=== PATIENT | male | born 1970 | race Caucasian/White ===

== ENCOUNTER 2022-09-19 08:38 | Outpatient (CLI) | payer BC, SELFPAY ==
--- NOTE | 2022-09-19 08:45 | CRLHL7_ITS ---
For Patients: As a result of the Cures Act, medical imaging exams and procedure reports are released immediately into your electronic medical record. You may view this report before your referring provider. If you have questions, please contact your health care provider. LEFT DIAGNOSTIC DIGITAL MAMMOGRAM WITH COMPUTER-AIDED DETECTION AND TOMOSYNTHESIS CLINICAL HISTORY: LEFT breast lump. COMPARISON: 04/13/2021, 12/31/2020. TECHNIQUE: Digital LEFT mammogram in two projections with computer-aided detection and tomosynthesis. BREAST COMPOSITION: There are scattered areas of fibroglandular density. FINDINGS: 3D CC and 3D MLO LEFT breast mammogram images submitted. Postbiopsy changes x2 are present within the retroareolar tissues. Focal subareolar gynecomastia again noted which is slightly more prominent. There is no underlying mass. No architectural distortion. No suspicious calcifications. IMPRESSION: Mildly increased LEFT subareolar focal gynecomastia, biopsy x2. No evidence of malignancy. RECOMMENDATIONS: Clinical follow-up. Consider surgical consultation if surgical excision is desired. No repeat biopsy indicated at this time. Results and recommendations discussed with the patient. BI-RADS Category 2. Benign A lay language report of this examination will be provided to the patient. Dictated by Jim Fuentes MD @ 09/19/2022 9:49:32 AM [email or web address] RD/Dictated by: Jim Fuentes MD @ 09/19/2022 9:49:00 AM (Electronically Signed)
== END 2022-09-19 08:39 | disposition home or self-care (01) ==
PROVIDERS: PCP Family Medicine; Visit Provider Family Medicine
DX: N63.20 Unspecified lump in the left breast, unspecified quadrant (principal)
CPT/HCPCS: 77065; G0279

== ENCOUNTER 2022-11-25 09:20 | Outpatient (CLI) | payer BC, SELFPAY ==
[2022-11-25 10:35] LABS: Albumin* 4.4 g/dL (3.3-5.0); Chloride* 103 mmol/L (96-114)
[2022-11-25 10:36] LABS: Potassium* 3.9 mmol/L (3.6-5.1); Sodium* 140 mmol/L (135-149)
[2022-11-25 10:38] LABS: Alkaline Phosphatase* 83 U/L (40-150); Aspartate Amino Transferase* 38 U/L (12-35); Bilirubin Total* 0.9 mg/dL (0.1-1.5); Blood Urea Nitrogen* 18 mg/dL (7-30); Carbon Dioxide* 31 mmol/L (20-32); Cholesterol* 251 mg/dL (90-199); Creatinine* 0.8 mg/dL (0.5-1.5); Estimated Glomerular Filt Rate 107 ml/min; Glucose* 87 mg/dL (60-115); Total Protein* 7.4 g/dL (6.0-8.3)
[2022-11-25 10:39] LABS: Alanine Aminotransferase* 32 U/L (4-50); Calcium* 9.6 mg/dL (8.4-10.6); HDL Cholesterol* 49 mg/dL (>=40)
[2022-11-25 10:50] LABS: LDL Cholesterol Calculated 71 mg/dL (<100); Triglycerides* 653 mg/dL (40-149)
== END 2022-11-25 09:21 | disposition home or self-care (01) ==
PROVIDERS: Family Medicine; PCP Family Medicine; Visit Provider Family Medicine
DX: Z00.00 Encounter for general adult medical examination without abnormal findings (principal); R50.9 Fever, unspecified; I10 Essential (primary) hypertension; E78.5 Hyperlipidemia, unspecified; N41.9 Inflammatory disease of prostate, unspecified
CPT/HCPCS: 80053; 80061

== ENCOUNTER 2023-12-14 08:51 | Outpatient (CLI) | payer BC, SELFPAY | END 2023-12-14 08:52 | disposition home or self-care (01) | LOC: NFLDREF 12-22 12:11 | PROVIDERS: PCP Family Medicine; Referring Provider Family Medicine; Visit Provider Family Medicine | DX: I10 Essential (primary) hypertension (principal); K62.89 Other specified diseases of anus and rectum; K62.5 Hemorrhage of anus and rectum; N41.9 Inflammatory disease of prostate, unspecified; B36.0 Pityriasis versicolor; E78.5 Hyperlipidemia, unspecified; Z12.5 Encounter for screening for malignant neoplasm of prostate; Z00.00 Encounter for general adult medical examination without abnormal findings | CPT/HCPCS: 80053; 80061; G0103 ==

== ENCOUNTER 2024-12-11 08:41 | Outpatient (CLI) | payer BC, SELFPAY | END 2024-12-11 08:42 | disposition home or self-care (01) | LOC: NFLDREF 12-16 08:48 | PROVIDERS: PCP Family Medicine; Referring Provider Family Medicine; Visit Provider Family Medicine | DX: I10 Essential (primary) hypertension (principal); E78.5 Hyperlipidemia, unspecified; Z12.5 Encounter for screening for malignant neoplasm of prostate | CPT/HCPCS: 80053; 80061; G0103 ==

== ENCOUNTER 2025-01-09 15:23 | Outpatient (CLI) | payer BC, SELFPAY ==
--- NOTE | 2025-01-09 15:30 | MR_ITS ---
EXAM: MR PELVIS WITHOUT AND WITH CONTRAST CLINICAL INFORMATION: Elevated PSA. COMPARISON: None. TECHNICAL INFORMATION: Examination was performed on a 1.5T magnet. High- resolution T1 axial, T2 axial, T2 FSE sagittal and T2 FSE coronal images were obtained through the prostate gland and seminal vesicles. Diffusion images were obtained in the axial plane. 15 mL of Dotarem were injected with dynamic enhanced images of the prostate gland in the axial plane. T1 fat saturation sagittal and coronal images were obtained postinjection. Images were analyzed with 3-D postprocessing online under concurrent physician supervision using a separate [employer] workstation. INTERPRETATION: The prostate gland measures 4.8 x 4.2 x 5.4 cm (TV x AP x SI) for an estimated volume of 56 cc. Transitional and central zones: There is moderate glandular and stromal hyperplasia with well encapsulated BPH nodules (PI-RADS 2). No focal CZ/TZ lesions concerning for clinically significant adenocarcinoma. Peripheral zones: No focal PZ lesions concerning for clinically significant adenocarcinoma (PI-RADS 1). Pelvis: No va transcapsular disease. Neurovascular bundles and seminal vesicles appear intact. No pelvic lymphadenopathy or evident bone marrow disease. CONCLUSION: Moderate prostatomegaly with stigmata of BPH. No suspicious (PI-RADS 3, 4, or 5) lesions identified. No va transcapsular, martha, or skeletal disease in the pelvis. PI-RADS Assessment Categories: Score 1 = very low; clinically significant disease highly unlikely Score 2 = low; clinically significant disease is unlikely Score 3 = intermediate; clinically significant disease is equivocal Score 4 = high; clinically significant disease is likely Score 5 = very high; clinically significant disease is highly likely Electronically signed on 01/14/2025 11:41:00 AM by Adam Erickson M.D.
== END 2025-01-09 15:24 | disposition home or self-care (01) ==
LOC: MRI 15:24
PROVIDERS: PCP Family Medicine; Visit Provider Urology
DX: R97.20 Elevated prostate specific antigen [PSA] (principal)
CPT/HCPCS: 72197; A9575

== ENCOUNTER 2025-05-09 14:26 | Outpatient (CLI) | payer BC, SELFPAY | END 2025-05-09 14:27 | disposition home or self-care (01) | LOC: NFLDREF 05-11 06:19 | PROVIDERS: PCP Family Medicine; Referring Provider Family Medicine; Visit Provider Nurse Practitioner Family | DX: R39.9 Unspecified symptoms and signs involving the genitourinary system (principal); N39.0 Urinary tract infection, site not specified | CPT/HCPCS: 87086; 87186 ==

== ENCOUNTER 2025-07-29 10:10 | Outpatient (CLI) | payer BC, SELFPAY ==
--- NOTE | 2025-07-29 10:15 | CRLHL7_ITS ---
For Patients: As a result of the Century Cures Act, medical imaging exams and procedure reports are released immediately into your electronic medical record. You may view this report before your referring provider. If you have questions, please contact your health care provider. Indication: Left Axilla Lymph Node Re-evaluation Technique: Grayscale and color Doppler ultrasound of the left axillary soft tissues performed. Comparison: 10/07/2021 Findings: Normal left axillary lymph node is present. No cortical thickening. Normal vascularity and normal central fatty hilum. Impression: No suspicious findings. Dictated by Jim Fuentes MD @ 07/29/2025 10:59:42 AM (Electronically Signed)
== END 2025-07-29 10:11 | disposition home or self-care (01) ==
PROVIDERS: PCP Family Medicine; Visit Provider Surgery
DX: R59.1 Generalized enlarged lymph nodes (principal)
CPT/HCPCS: 76882

== ENCOUNTER 2025-09-01 10:04 | Outpatient (CLI) | payer BC, SELFPAY ==
--- NOTE | 2025-09-01 11:56 | P.ANES_ITS ---
Anesthesia Charges Start Date/Time Anesthesia Start Date: 09/01/25 Anesthesia Start Time: 11:34 Stop Date/Time Anesthesia Stop Date: 09/01/25 Anesthesia Stop Time: 12:09 Coding CPT Codes CPT Codes: ANES LWR INTST NDSC NOS - [id number] ([id number]) P3 - PATIENT W/SEVERE SYS DISEASE, QK - ELECTRONIC WARFARE TECHNICIAN 2-4 CNCRNT ANES PROC, QX - COOK COLD MEAT SVC W/ MD MED DIRECTION
--- NOTE | 2025-09-01 11:56 | W.ANESCHARGE ---
Anesthesia Charges Start Date/Time Anesthesia Start Date: 09/01/25 Anesthesia Start Time: 11:34 Stop Date/Time Anesthesia Stop Date: 09/01/25 Anesthesia Stop Time: 12:09 Coding CPT Codes CPT Codes: ANES LWR INTST NDSC NOS - [id number] ([id number]) P3 - PATIENT W/SEVERE SYS DISEASE, QK - HEAD PORTER 2-4 CNCRNT ANES PROC, QX - VACUUM EXTRACTOR OPERATOR SVC W/ MD MED DIRECTION
--- NOTE | 2025-09-01 12:11 | P.ANES_ITS ---
Anesthesia Charges Start Date/Time Anesthesia Start Date: 09/01/25 Anesthesia Start Time: 11:34 Stop Date/Time Anesthesia Stop Date: 09/01/25 Anesthesia Stop Time: 12:09 Coding CPT Codes CPT Codes: ANES LWR INTST NDSC NOS - [id number] ([id number]) P3 - PATIENT W/SEVERE SYS DISEASE, QK - CLAIM SERVICE REPRESENTATIVE 2-4 CNCRNT ANES PROC, QX - BASIC SCIENCES DEAN SVC W/ MD MED DIRECTION
--- NOTE | 2025-09-01 12:11 | W.ANESCHARGE ---
Anesthesia Charges Start Date/Time Anesthesia Start Date: 09/01/25 Anesthesia Start Time: 11:34 Stop Date/Time Anesthesia Stop Date: 09/01/25 Anesthesia Stop Time: 12:09 Coding CPT Codes CPT Codes: ANES LWR INTST NDSC NOS - [id number] ([id number]) P3 - PATIENT W/SEVERE SYS DISEASE, QK - TIRE CURER 2-4 CNCRNT ANES PROC, QX - AUTO PARTS MANAGER SVC W/ MD MED DIRECTION
== END 2025-09-01 10:05 | disposition home or self-care (01) ==
LOC: OP CLINIC 10:04
PROVIDERS: PCP Family Medicine; Visit Provider Surgery
DX: K62.5 Hemorrhage of anus and rectum (principal); D12.0 Benign neoplasm of cecum; D12.3 Benign neoplasm of transverse colon; K64.8 Other hemorrhoids
CPT/HCPCS: 00811; 45385; J2704